=== PATIENT | female | born 1950 | race Hispanic/Latino ===

== ENCOUNTER 2019-04-10 13:58 | Emergency (ER) | payer MEDICARE ==
[2019-04-10 14:26] LABS: BASOPHILS % (AUTO) 0.3 % (0.0-5.0); EOSINOPHILS % (AUTO) 0.8 % (0.0-8.0); HEMATOCRIT 43.1 % (36-48); MEAN CORPUSCULAR HEMOGLOBIN 32.6 pg (27.0-33.0); MEAN CORPUSCULAR HGB CONC 35.1 g/dL (32.0-36.0); MEAN CORPUSCULAR VOLUME 92.7 fL (79-99); MONOCYTES % (AUTO) 4.5 % (3.0-13.0); NEUTROPHILS % (AUTO) 69.4 % (40.0-77.0); PLATELET COUNT (AUTO) 215 K/uL (130-400); RED BLOOD CELL COUNT(AUTO) 4.65 MIL/uL (4.00-5.50); RED CELL DISTRIBUTION WIDTH 12.8 % (11.0-15.5); WHITE BLOOD COUNT (AUTO) 10.3 K/uL (4.8-10.8)
[2019-04-10 14:36] LABS: APPEARANCE,URINE Clear (CLEAR); BILIRUBIN,URINE Negative (NEGATIVE); COLOR,URINE Yellow (YELLOW); CREATININE 0.9 mg/dL (0.5-1.5); GLUCOSE, URINE (UA) Negative (NEGATIVE); KETONES,URINE Negative (NEGATIVE); LEUKOCYTE ESTERASE ,URINE Trace (NEGATIVE); NITRATE,URINE Negative (NEGATIVE); OCCULT BLOOD,URINE Negative (NEGATIVE); POTASSIUM 3.8 mmol/L (3.5-5.1); PROTEIN,URINE Negative (NEGATIVE)
[2019-04-10 14:40] LABS: BILIRUBIN,TOTAL 0.7 mg/dL (0.2-1.0); TOTAL PROTEIN, SERUM 8.2 g/dL (6.0-8.3)
[2019-04-10] MEDS ORDERED: ONDANSETRON HCL 4 MG/2 ML VIAL ONE (14:54)
[2019-04-10] MEDS ORDERED: MAG HYDROX/AL HYDROX/SIMETH ES 30 ML SUSP UDCUP ONE (14:54)
[2019-04-10] MEDS ORDERED: LIDOCAINE HCL 2% VISCOUS 15 ML UDCUP ONE (14:54)
[2019-04-10] MEDS ORDERED: FAMOTIDINE/PF 20 MG/2 ML VIAL IV ONE (14:54)
[2019-04-10] MEDS ORDERED: SODIUM CHLORIDE 0.9% 1000ML 1,000 ML IV ONE (14:55)
[2019-04-10 15:18] LABS: BACTERIA,URINE Rare /HPF (None Seen); RBC,URINE 0-1 /HPF (0-1); SQUAMOUS EPITHELIAL CELL,UR Rare /HPF (0-2); WBC,URINE 0-1 /HPF (0-1)
== END 2019-04-10 15:53 | disposition home or self-care (01) ==
LOC: EDH 13:58
DX: K21.9 Gastro-esophageal reflux disease without esophagitis (principal); K29.70 Gastritis, unspecified, without bleeding; I10 Essential (primary) hypertension; Z98.890 Other specified postprocedural states
CPT/HCPCS: 36415; 80053; 81001; 83690; 84484; 85025; 93005; 96361; 96374; 96375; 99285; J2405; J3490; J7030

== ENCOUNTER 2019-11-26 18:01 | Emergency (ER) | payer MEDICARE ==
[2019-11-26] MEDS ORDERED: ACETAMINOPHEN 325 MG TAB ONE (18:55)
[2019-11-26 19:56] LABS: BASOPHILS % (AUTO) 0.2 % (0.0-5.0); EOSINOPHILS % (AUTO) 0.3 % (0.0-8.0); HEMATOCRIT 37.5 % (36-48); LYMPHOCYTES % (AUTO) 15.4 % (21.0-51.0); MEAN CORPUSCULAR HEMOGLOBIN 29.9 pg (27.0-33.0); MEAN CORPUSCULAR HGB CONC 33.6 g/dL (32.0-36.0); MEAN CORPUSCULAR VOLUME 88.9 fL (79-99); MONOCYTES % (AUTO) 5.7 % (3.0-13.0); PLATELET COUNT (AUTO) 235 K/uL (130-400); RED BLOOD CELL COUNT(AUTO) 4.22 MIL/uL (4.00-5.50); WHITE BLOOD COUNT (AUTO) 11.1 K/uL (4.8-10.8)
[2019-11-26 19:57] LABS: APPEARANCE,URINE Clear (CLEAR); BILIRUBIN,URINE Negative (NEGATIVE); COLOR,URINE Yellow (YELLOW); GLUCOSE, URINE (UA) Negative (NEGATIVE); KETONES,URINE Negative (NEGATIVE); LEUKOCYTE ESTERASE ,URINE Trace (NEGATIVE); NITRATE,URINE Negative (NEGATIVE); OCCULT BLOOD,URINE Negative (NEGATIVE); PROTEIN,URINE Negative (NEGATIVE); UROBILINOGEN,URINE 0.2 mg/dL (0.2-1.0)
[2019-11-26 20:03] LABS: CREATININE 0.9 mg/dL (0.5-1.5); POTASSIUM 4.4 mmol/L (3.5-5.1)
[2019-11-26 20:09] LABS: ALBUMIN 3.8 g/dL (3.5-5.0); BACTERIA,URINE Rare /HPF (None Seen); BILIRUBIN,TOTAL 0.5 mg/dL (0.2-1.0); RBC,URINE None Seen /HPF (0-1); SQUAMOUS EPITHELIAL CELL,UR 0-2 /HPF (0-2); TOTAL PROTEIN, SERUM 8.2 g/dL (6.0-8.3); WBC,URINE 0-1 /HPF (0-1)
[2019-11-26 20:32] LABS: INR 1.01 (0.85-1.15); PARTIAL THROMBOPLASTIN TIME 26.6 SEC (26.3-35.5); PROTHROMBIN TIME 10.6 SEC (9.6-11.6)
== END 2019-11-26 22:41 | disposition home or self-care (01) ==
LOC: EDH 18:01
DX: S05.12XA Contusion of eyeball and orbital tissues, left eye, initial encounter (principal); S13.4XXA Sprain of ligaments of cervical spine, initial encounter; I10 Essential (primary) hypertension; V49.88XA Car occupant (driver) (passenger) injured in other specified transport accidents, initial encounter; Y93.89 Activity, other specified; Y92.488 Other paved roadways as the place of occurrence of the external cause; Y99.8 Other external cause status
CPT/HCPCS: 36415; 70450; 71045; 72125; 80053; 81001; 85025; 85610; 85730; 93005

== ENCOUNTER → 2019-11-26 | Outpatient (CLI) | payer MEDICARE | END | disposition home or self-care (01) | LOC: RAH 15:17 | PROVIDERS: ATTEND Family Medicine | DX: Z12.31 Encounter for screening mammogram for malignant neoplasm of breast (principal); R92.1 Mammographic calcification found on diagnostic imaging of breast | CPT/HCPCS: 77067 ==

== ENCOUNTER → 2020-04-04 | Outpatient (CLI) | payer MEDICARE ==
[~2020-04-04] MED LIST: IOHEXOL-350 50ML VIAL IV ONE
== END | disposition home or self-care (01) ==
LOC: RAH 14:16
PROVIDERS: ATTEND Family Medicine
DX: R51 Headache (principal); H93.19 Tinnitus, unspecified ear; H93.292 Other abnormal auditory perceptions, left ear
CPT/HCPCS: 70470; Q9967

== ENCOUNTER → 2021-03-05 | Outpatient (CLI) | payer MEDICARE | END | disposition home or self-care (01) | LOC: RAH 15:01 | PROVIDERS: ATTEND Family Medicine | DX: Z12.31 Encounter for screening mammogram for malignant neoplasm of breast (principal) | CPT/HCPCS: 77067 ==

== ENCOUNTER 2021-04-10 19:54 | Emergency (ER) | payer MEDICARE ==
[~2021-04-10] VITALS: Ht 154.9 cm; Wt 50.8 kg
[2021-04-10 20:05] VITALS: BP 161/70
[2021-04-10] MEDS ORDERED: FAMOTIDINE/PF 20 MG/2 ML VIAL IV ONE ×2 (21:00→22:04)
[2021-04-10] MEDS ORDERED: SODIUM CHLORIDE 0.9% 1000ML 1,000 ML IV ONE (21:00)
[2021-04-10] MEDS ORDERED: PROCHLORPERAZINE EDISYLATE 10 MG/2 ML VIAL IVP ONE (21:00)
[2021-04-10] MEDS ORDERED: PANTOPRAZOLE 40 MG/VIAL IVP ONE (21:00)
[2021-04-10 21:53] LABS: BASOPHILS % (AUTO) 0.2 % (0.0-5.0); LYMPHOCYTES % (AUTO) 19.8 % (21.0-51.0); MEAN CORPUSCULAR HEMOGLOBIN 31.3 pg (27.0-33.0); MEAN CORPUSCULAR HGB CONC 33.9 g/dL (32.0-36.0); MEAN CORPUSCULAR VOLUME 92.2 fL (79-99); MONOCYTES % (AUTO) 5.7 % (3.0-13.0); PLATELET COUNT (AUTO) 249 K/uL (130-400); RED BLOOD CELL COUNT(AUTO) 4.12 MIL/uL (4.00-5.50); RED CELL DISTRIBUTION WIDTH 12.3 % (11.0-15.5); WHITE BLOOD COUNT (AUTO) 10.1 K/uL (4.8-10.8)
[2021-04-10] MEDS ORDERED: ONDANSETRON HCL 4 MG/2 ML VIAL ONE (22:03)
[2021-04-10] MEDS ORDERED: PROCHLORPERAZINE EDISYLATE 10 MG/2 ML VIAL ONE (22:04)
[2021-04-10] MEDS ORDERED: PANTOPRAZOLE 40 MG/VIAL ONE (22:04)
[2021-04-10 22:06] LABS: CREATININE 0.9 mg/dL (0.5-1.5); POTASSIUM 4.6 mmol/L (3.5-5.1)
[2021-04-10 22:14] LABS: ALBUMIN 4.1 g/dL (3.5-5.0); BILIRUBIN,TOTAL 0.6 mg/dL (0.2-1.0); TOTAL PROTEIN, SERUM 7.9 g/dL (6.0-8.3)
[2021-04-10] MEDS: ONDANSETRON HCL 4 MG/2 ML VIAL IVP ONE ×2 (22:22→22:27)
[2021-04-10] MEDS ORDERED: PANT40TA PO (23:24)
[2021-04-10] MEDS ORDERED: METO5 PO (23:24)
[2021-04-10] MEDS ORDERED: ONDA4TAB10 PO (23:24)
[2021-04-10] MEDS ORDERED: DICY20TA2 PO (23:24)
[2021-04-10] MEDS ORDERED: MAG HYDROX/AL HYDROX/SIMETH ES 30 ML SUSP UDCUP PO ONE (23:30)
[2021-04-10] MEDS ORDERED: LIDOCAINE HCL 2% VISCOUS 15 ML UDCUP PO ONE (23:30)
[2021-04-10] MEDS ORDERED: DiphenhydrAMINE HCL 50 MG/ML VIAL IV ONE (23:30)
[2021-04-11] VITALS: BP 142/82
== END 2021-04-11 00:15 | disposition home or self-care (01) ==
LOC: EDH 19:54
DX: K29.70 Gastritis, unspecified, without bleeding (principal); E86.0 Dehydration; I10 Essential (primary) hypertension; Z79.899 Other long term (current) drug therapy
CPT/HCPCS: 36415; 80053; 83690; 84484; 85025; 96374; 96375 ×2; 99284; C9113; J0780; J1200; J2405; J3490; 93005

== ENCOUNTER 2021-04-12 19:53 | Inpatient (IN) | payer MEDICARE ==
[~2021-04-12] VITALS: Ht 154.9 cm; Wt 51.1 kg
[~2021-04-12 19:53] MED LIST changes: +DICY20TA2 PO; -IOHEXOL-350 50ML VIAL IV ONE; +METO5 PO; +ONDA4TAB10 PO; +PANT40TA PO
[2021-04-12] MEDS ORDERED: PANTOPRAZOLE 40 MG/VIAL IVP SCH (20:30)
[2021-04-12] MEDS ORDERED: METOCLOPRAMIDE 10 MG/2 ML VIAL IVP ONE (20:30)
[2021-04-12] MEDS ORDERED: SODIUM CHLORIDE 0.9% 1000ML 1,000 ML IV ONE (20:30)
[2021-04-12] MEDS ORDERED: FAMOTIDINE/PF 20 MG/2 ML VIAL IV ONE (20:30)
[2021-04-12] MEDS ORDERED: ONDANSETRON HCL 4 MG/2 ML VIAL IVP ONE (20:30)
[2021-04-12 20:55] VITALS: BP 127/63
[2021-04-12 21:01] LABS: BASOPHILS % (AUTO) 0.1 % (0.0-5.0); EOSINOPHILS % (AUTO) 1.6 % (0.0-8.0); HEMATOCRIT 42.9 % (36-48); LYMPHOCYTES % (AUTO) 6.7 % (21.0-51.0); MEAN CORPUSCULAR HEMOGLOBIN 30.2 pg (27.0-33.0); MEAN CORPUSCULAR HGB CONC 34.3 g/dL (32.0-36.0); MEAN CORPUSCULAR VOLUME 88.1 fL (79-99); MONOCYTES % (AUTO) 3.9 % (3.0-13.0); NEUTROPHILS % (AUTO) 87.4 % (40.0-77.0); PLATELET COUNT (AUTO) 299 K/uL (130-400); RED BLOOD CELL COUNT(AUTO) 4.87 MIL/uL (4.00-5.50); RED CELL DISTRIBUTION WIDTH 12.1 % (11.0-15.5); WHITE BLOOD COUNT (AUTO) 14.9 K/uL (4.8-10.8)
[2021-04-12] MEDS ORDERED: IOHEXOL-350 75 ML VIAL IV ONE (21:11)
[2021-04-12 21:12] LABS: CARBON DIOXIDE 27 mmol/L (21-32); CHLORIDE 91 mmol/L (101-111); CREATININE 1.1 mg/dL (0.5-1.5); GLOMERULAR FILTR. RATE CALC 52 mL/min (>60); GLUCOSE,RANDOM 109 mg/dL (70-105); POTASSIUM 4.1 mmol/L (3.5-5.1); SODIUM SERUM 128 mmol/L (136-145); UREA NITROGEN, BLOOD 26 mg/dL (7-18)
[2021-04-12 21:18] LABS: ALANINE AMINOTRANSFERASE 19 U/L (12-78); ASPARTATE AMINOTRANSFERASE 18 U/L (10-37); BILIRUBIN,TOTAL 1.2 mg/dL (0.2-1.0); TOTAL PROTEIN, SERUM 8.2 g/dL (6.0-8.3)
[2021-04-12 21:20] LABS: LIPASE < 50 U/L (114-286)
[2021-04-12 22:38] VITALS: BP 133/85
[2021-04-12 22:39] LABS: APPEARANCE,URINE Clear (CLEAR); BILIRUBIN,URINE Negative (NEGATIVE); COLOR,URINE Yellow (YELLOW); GLUCOSE, URINE (UA) Negative (NEGATIVE); KETONES,URINE Negative (NEGATIVE); LEUKOCYTE ESTERASE ,URINE Negative (NEGATIVE); NITRATE,URINE Negative (NEGATIVE); OCCULT BLOOD,URINE Negative (NEGATIVE); PH,URINE 6.5 (5.0-8.0); PROTEIN,URINE Negative (NEGATIVE); UROBILINOGEN,URINE 0.2 mg/dL (0.2-1.0)
[2021-04-13] VITALS (8 sets, daily range): BP systolic 134–146; BP diastolic 51–80
[2021-04-13] MEDS: LIDOCAINE HCL 2% JELLY 5 ML TP SCH ×2 (00:34→22:16)
[2021-04-13] MEDS ORDERED: DICY20TA11 PO (02:37)
[2021-04-13] MEDS ORDERED: OMEP20CA12 PO (02:37)
[2021-04-13] MEDS ORDERED: AMLO-257 PO (02:37)
[2021-04-13] MEDS ORDERED: LOSA100T58 PO (02:37)
[2021-04-13] MEDS ORDERED: LINA290C PO (02:37)
[2021-04-13] MEDS ORDERED: LEVO5TAB13 PO (02:37)
[2021-04-13] MEDS ORDERED: FLUT16H EN (02:37)
[2021-04-13] MEDS ORDERED: MONT10TA32 PO (02:37)
[2021-04-13] MEDS ORDERED: LEVO50TA11 PO (02:37)
[2021-04-13] MEDS ORDERED: AZEL137S11 NS (02:37)
[2021-04-13] MEDS ORDERED: METO5TAB2 PO (02:37)
[2021-04-13] MEDS ORDERED: HYDR12.54 PO (02:37)
[2021-04-13] MEDS ORDERED: FLUT (02:37)
[2021-04-13] MEDS ORDERED: ONDA4TAB10 PO (02:37)
[2021-04-13] MEDS ORDERED: PANT40TA54 PO (02:37)
[2021-04-13] MEDS ORDERED: ONDANSETRON HCL 4 MG/2 ML VIAL IVP PRN (04:30)
[2021-04-13] MEDS ORDERED: HYDRALAZINE HCL 20 MG/ML VIAL IV PRN (04:30)
[2021-04-13] MEDS: ZOSYN 3.375GM +NS 50ML IV SCH ×3 (04:30→21:17)
[2021-04-13] MEDS ORDERED: ACETAMINOPHEN 650 MG SUPPOSITORY RC PRN (04:30)
[2021-04-13] MEDS ORDERED: ZOSYN 3.375GM+NS 50ML 50 ML IV ONE (05:54)
[2021-04-13 06:47] LABS: BASOPHILS % (AUTO) 0.2 % (0.0-5.0); EOSINOPHILS % (AUTO) 0.3 % (0.0-8.0); HEMATOCRIT 35.3 % (36-48); LYMPHOCYTES % (AUTO) 15.9 % (21.0-51.0); MEAN CORPUSCULAR HEMOGLOBIN 30.9 pg (27.0-33.0); MEAN CORPUSCULAR HGB CONC 34.3 g/dL (32.0-36.0); MEAN CORPUSCULAR VOLUME 90.1 fL (79-99); MONOCYTES % (AUTO) 7.4 % (3.0-13.0); NEUTROPHILS % (AUTO) 75.8 % (40.0-77.0); PLATELET COUNT (AUTO) 232 K/uL (130-400); RED BLOOD CELL COUNT(AUTO) 3.92 MIL/uL (4.00-5.50); RED CELL DISTRIBUTION WIDTH 12.3 % (11.0-15.5); WHITE BLOOD COUNT (AUTO) 11.2 K/uL (4.8-10.8)
[2021-04-13 07:10] LABS: CREATININE 0.8 mg/dL (0.5-1.5); PHOSPHORUS 2.6 mg/dL (2.5-4.9); POTASSIUM 3.8 mmol/L (3.5-5.1); THYROID STIMULATING HORMONE 2.81 uIU/mL (0.36-3.74)
[2021-04-13] MEDS: FAMOTIDINE/PF 20 MG/2 ML VIAL IV SCH ×3 (08:57→21:18)
[2021-04-13] MEDS: ENOXAPARIN SODIUM 40 MG/0.4 ML SYRINGE SQ SCH (09:03)
[2021-04-13] MEDS: DEXTROSE 5%-LACTATED RINGERS 1,000 ML IV SCH ×2 (10:30→19:26)
[2021-04-13] MEDS: BISACODYL 10 MG SUPP.RECT RC SCH (11:30)
[2021-04-13] MEDS ORDERED: POTASSIUM CHLORIDE 20MEQ/100ML 100 ML IV PRN ×2 (11:30)
[2021-04-13] MEDS ORDERED: LIDOCAINE HCL-MPF 1% 2ML VIAL IV PRN ×2 (11:30)
[2021-04-13] MEDS ORDERED: POTASSIUM CHLORIDE 10% ELIXIR 20 MEQ/15 ML UDCUP PO PRN (11:30)
[2021-04-13] MEDS ORDERED: MAGNESIUM 2GM PREMIX 50ML 50 ML IV PRN (11:30)
[2021-04-13] MEDS: METOCLOPRAMIDE 10 MG/2 ML VIAL IVP SCH ×2 (11:46→17:26)
[2021-04-13] MEDS ORDERED: SODIUM CHLORIDE 0.9% 100 ML ONE ×2 (13:27→21:16)
[2021-04-13] MEDS ORDERED: SODIUM CHLORIDE 0.9% 50 ML IV ONE (17:34)
[2021-04-13] MEDS: LACTULOSE 20 GM/30 ML UDCUP PO SCH (21:17)
[2021-04-14] VITALS (7 sets, daily range): BP systolic 132–158; BP diastolic 54–75
[2021-04-14] MEDS: ZOSYN 3.375GM +NS 50ML IV SCH ×3 (04:42→20:15)
[2021-04-14] MEDS: DEXTROSE 5%-LACTATED RINGERS 1,000 ML IV SCH (04:42)
[2021-04-14 05:04] LABS: HEMATOCRIT 34.7 % (36-48); MEAN CORPUSCULAR HEMOGLOBIN 30.5 pg (27.0-33.0); MEAN CORPUSCULAR HGB CONC 34.3 g/dL (32.0-36.0); RED BLOOD CELL COUNT(AUTO) 3.9 MIL/uL (4.00-5.50); RED CELL DISTRIBUTION WIDTH 12.3 % (11.0-15.5); WHITE BLOOD COUNT (AUTO) 8.7 K/uL (4.8-10.8)
[2021-04-14] MEDS ORDERED: CABE0.5T2 PO (05:04)
[2021-04-14] MEDS ORDERED: BISA5TAB12 PO (05:04)
[2021-04-14] MEDS ORDERED: PSYL3.4P5 PO (05:04)
[2021-04-14 05:17] LABS: CREATININE 0.8 mg/dL (0.5-1.5); MAGNESIUM 1.9 mg/dL (1.80-2.40); PHOSPHORUS 2.4 mg/dL (2.5-4.9); POTASSIUM 3.3 mmol/L (3.5-5.1)
[2021-04-14] MEDS: METOCLOPRAMIDE 10 MG/2 ML VIAL IVP SCH ×3 (07:30→16:48)
[2021-04-14] MEDS ORDERED: POTASSIUM PHOS 15 mMOL+NS250ML 250 ML IV ONE (07:30)
[2021-04-14] MEDS: BISACODYL 10 MG SUPP.RECT RC SCH ×2 (08:24→09:36)
[2021-04-14] MEDS: ENOXAPARIN SODIUM 40 MG/0.4 ML SYRINGE SQ SCH (09:36)
[2021-04-14] MEDS: LACTULOSE 20 GM/30 ML UDCUP PO SCH ×2 (09:36→20:15)
[2021-04-14] MEDS: FAMOTIDINE/PF 20 MG/2 ML VIAL IV SCH (20:15)
[2021-04-14] MEDS: MORPHINE 2 MG SYG (2MG/1ML) IVP PRN (20:16)
[2021-04-15 04:00] VITALS: BP 153/67
[2021-04-15] MEDS: ZOSYN 3.375GM +NS 50ML IV SCH ×3 (04:48→21:29)
[2021-04-15] MEDS: DEXTROSE 5%-LACTATED RINGERS 1,000 ML IV SCH ×2 (04:49→17:21)
[2021-04-15 05:57] LABS: HEMATOCRIT 34.7 % (36-48); MEAN CORPUSCULAR VOLUME 91.1 fL (79-99); RED BLOOD CELL COUNT(AUTO) 3.81 MIL/uL (4.00-5.50); RED CELL DISTRIBUTION WIDTH 12.3 % (11.0-15.5); WHITE BLOOD COUNT (AUTO) 7.8 K/uL (4.8-10.8)
[2021-04-15 06:01] LABS: CREATININE 0.8 mg/dL (0.5-1.5); POTASSIUM 3.2 mmol/L (3.5-5.1)
[2021-04-15] MEDS: KCL 20 MEQ ERTAB PO PRN ×3 (06:45→17:21)
[2021-04-15] MEDS: METOCLOPRAMIDE 10 MG/2 ML VIAL IVP SCH ×3 (06:45→16:19)
[2021-04-15] MEDS: BISACODYL 10 MG SUPP.RECT RC SCH ×2 (07:50)
[2021-04-15 08:00] VITALS: BP 165/69
[2021-04-15] MEDS ORDERED: LACT10SO9 PO (08:30)
[2021-04-15] MEDS: FAMOTIDINE/PF 20 MG/2 ML VIAL IV SCH ×2 (08:58→21:29)
[2021-04-15] MEDS: ENOXAPARIN SODIUM 40 MG/0.4 ML SYRINGE SQ SCH (08:58)
[2021-04-15] MEDS: LACTULOSE 20 GM/30 ML UDCUP PO SCH ×2 (08:58→21:29)
[2021-04-15 12:00] VITALS: BP 158/62
[2021-04-15 16:00] VITALS: BP 166/70
[2021-04-15 19:41] VITALS: BP 157/76
[2021-04-16] VITALS: BP 160/75
[2021-04-16] MEDS: MORPHINE 2 MG SYG (2MG/1ML) IVP PRN (02:45)
[2021-04-16 04:00] VITALS: BP 162/77
[2021-04-16] MEDS: DEXTROSE 5%-LACTATED RINGERS 1,000 ML IV SCH (05:52)
[2021-04-16] MEDS: ZOSYN 3.375GM +NS 50ML IV SCH (05:52)
[2021-04-16] MEDS: METOCLOPRAMIDE 10 MG/2 ML VIAL IVP SCH (05:52)
[2021-04-16 07:00] VITALS: BP 146/67
[2021-04-16 08:30] LABS: CREATININE 0.9 mg/dL (0.5-1.5); POTASSIUM 3.7 mmol/L (3.5-5.1)
[2021-04-16] MEDS ORDERED: HYDROCHLOROTHIAZIDE 25 MG TABLET PO SCH (09:00)
[2021-04-16] MEDS ORDERED: LOSARTAN 100 MG TABLET PO SCH (09:00)
[2021-04-16] MEDS ORDERED: AMLODIPINE BESYLATE 5 MG TAB PO SCH (09:00)
[2021-04-16] MEDS: FAMOTIDINE/PF 20 MG/2 ML VIAL IV SCH (09:47)
[2021-04-16] MEDS: LACTULOSE 20 GM/30 ML UDCUP PO SCH (09:48)
[2021-04-16] MEDS: ENOXAPARIN SODIUM 40 MG/0.4 ML SYRINGE SQ SCH (09:48)
[2021-04-16 11:00] VITALS: BP 179/74
[2021-04-16] MEDS ORDERED: SUCR1TAB28 PO (12:46)
== END 2021-04-16 14:45 | disposition home or self-care (01) | DRG 389 ==
LOC: EDH 19:53 → EDHIP 04-13 02:23 → OBSVTOIN 04-13 02:23 → 3DH 04-14 03:10
PROVIDERS: ADMIT Internal Medicine Critical Care Medicine; ATTEND Internal Medicine Critical Care Medicine
PROC: 0D9670Z Drainage of Stomach with Drainage Device, Via Natural or Artificial Opening (ICD-10-PCS; principal; 2021-04-13)
DX: K56.51 Intestinal adhesions [bands], with partial obstruction (principal); E87.1 Hypo-osmolality and hyponatremia; E03.9 Hypothyroidism, unspecified; E86.0 Dehydration; I10 Essential (primary) hypertension; K21.9 Gastro-esophageal reflux disease without esophagitis; Z85.038 Personal history of other malignant neoplasm of large intestine; Z90.49 Acquired absence of other specified parts of digestive tract; Z79.899 Other long term (current) drug therapy
CPT/HCPCS: 36415; 71045; 74018; 74177; 80048; 80053; 81003; 83690; 83735; 84100; 84443; 84484; 85025; 85027; 93005; 96374; 96375; C9113; G0378; J0780; J1200; J1650; J2405; J2543; J2765; J3490; J7030; Q9967

== ENCOUNTER → 2021-06-05 | Outpatient (CLI) | payer MEDICARE ==
[~2021-06-05] MED LIST changes: +AMLO-257 PO; +AZEL137S11 NS; +CABE0.5T2 PO; -DICY20TA2 PO; +FLUT16H EN; +HYDR12.54 PO; +LACT10SO9 PO; +LEVO50TA11 PO; +LEVO5TAB13 PO; +LINA290C PO; +LOSA100T58 PO; +MONT10TA32 PO; +OMEP20CA12 PO; -PANT40TA PO; +PSYL3.4P5 PO; +SUCR1TAB28 PO
== END | disposition home or self-care (01) ==
LOC: OIH 15:43
PROVIDERS: ATTEND Family Medicine
DX: M25.711 Osteophyte, right shoulder (principal)
CPT/HCPCS: 73030

== ENCOUNTER → 2021-06-18 | Outpatient (CLI) | payer MEDICARE | END | disposition home or self-care (01) | LOC: RAH 10:58 | PROVIDERS: ATTEND Internal Medicine Gastroenterology | DX: R10.13 Epigastric pain (principal) | CPT/HCPCS: 78264; A9541 ==

== ENCOUNTER 2022-02-12 20:55 | Inpatient (IN) | payer MEDICARE ==
[~2022-02-12] VITALS: Ht 154.9 cm; Wt 48.6 kg
[~2022-02-12 20:55] MED LIST changes: +MONT-39 PO; -MONT10TA32 PO
[2022-02-12] MEDS ORDERED: ONDANSETRON 4MG INJ IVP ONE (21:30)
[2022-02-12] MEDS ORDERED: DICYCLOMINE HCL 10 MG/5 ML ML PO ONE (21:30)
[2022-02-12] MEDS ORDERED: FAMOTIDINE 20MG TAB PO ONE (21:30)
[2022-02-12] MEDS ORDERED: LIDOCAINE HCL 2% VISCOUS 15 ML UDCUP PO ONE (21:30)
[2022-02-12] MEDS ORDERED: ACETAMINOPHEN 500 MG TABLET PO ONE (21:30)
[2022-02-12] MEDS ORDERED: MAG/ALUM/SIMETH 30 ML UDCUP PO ONE (21:30)
[2022-02-12 21:32] LABS: BASOPHILS % (AUTO) 0.3 % (0.0-5.0); EOSINOPHILS % (AUTO) 0.4 % (0.0-8.0); HEMATOCRIT 34.2 % (36-48); LYMPHOCYTES % (AUTO) 11.3 % (21.0-51.0); MEAN CORPUSCULAR HEMOGLOBIN 31.3 pg (27.0-33.0); NEUTROPHILS % (AUTO) 81.7 % (40.0-77.0); PLATELET COUNT (AUTO) 239 K/uL (130-400); RED BLOOD CELL COUNT(AUTO) 3.93 MIL/uL (4.00-5.50)
[2022-02-12 21:40] LABS: CARBON DIOXIDE 23 mmol/L (21-32); CHLORIDE 94 mmol/L (101-111); GLOMERULAR FILTR. RATE CALC 58 mL/min (>60); GLUCOSE,RANDOM 128 mg/dL (70-105); POTASSIUM 3.4 mmol/L (3.5-5.1); SODIUM SERUM 128 mmol/L (136-145); UREA NITROGEN, BLOOD 15 mg/dL (7-18)
[2022-02-12 21:44] LABS: ALANINE AMINOTRANSFERASE 24 U/L (12-78); ASPARTATE AMINOTRANSFERASE 17 U/L (10-37); BILIRUBIN,TOTAL 1.1 mg/dL (0.2-1.0); TOTAL PROTEIN, SERUM 7.6 g/dL (6.0-8.3)
[2022-02-12 21:47] LABS: LIPASE < 50 U/L (114-286)
[2022-02-12] MEDS ORDERED: 0.9%NACL 1000ML 1,000 ML IV ONE ×2 (22:21→22:30)
[2022-02-12] MEDS ORDERED: LACTULOSE 20 GM/30 ML UDCUP PO PRN (23:00)
[2022-02-12] MEDS ORDERED: HYDRALAZINE 20MG/ML VIAL IV PRN (23:00)
[2022-02-12] MEDS ORDERED: ACETAMINOPHEN 650 MG SUPPOSITORY RC PRN (23:00)
[2022-02-12] MEDS ORDERED: DOCUSATE SODIUM 100 MG CAP PO PRN (23:00)
[2022-02-12] MEDS ORDERED: ALBUTEROL 0.083% 2.5 MG/3 ML INH IH PRN (23:00)
[2022-02-12] MEDS ORDERED: ACETAMINOPHEN 325 MG TAB PO PRN (23:00)
[2022-02-12] MEDS: 0.9%NACL 1000ML 1,000 ML IV SCH (23:30)
[2022-02-12] MEDS: MORPHINE 2 MG SYG IVP PRN (23:54)
[2022-02-12] MEDS: ONDANSETRON 4MG INJ IVP PRN (23:54)
[2022-02-13 01:44] LABS: APPEARANCE,URINE Clear (CLEAR); BILIRUBIN,URINE Negative (NEGATIVE); COLOR,URINE Yellow (YELLOW); GLUCOSE, URINE (UA) Negative (NEGATIVE); KETONES,URINE 15 mg/dL (NEGATIVE); LEUKOCYTE ESTERASE ,URINE Trace (NEGATIVE); NITRATE,URINE Negative (NEGATIVE); OCCULT BLOOD,URINE Negative (NEGATIVE); PH,URINE 6.5 (5.0-8.0); PROTEIN,URINE Negative (NEGATIVE)
[2022-02-13 01:58] LABS: BACTERIA,URINE None Seen /HPF (None Seen); RBC,URINE None Seen /HPF (0-1); SQUAMOUS EPITHELIAL CELL,UR Rare /HPF (0-2); WBC,URINE 0-1 /HPF (0-1)
[2022-02-13 05:21] VITALS: BP 152/65
[2022-02-13 06:32] LABS: AMYLASE 36 U/L (25-115); CARBON DIOXIDE 22 mmol/L (21-32); CHLORIDE 97 mmol/L (101-111); CREATININE 0.7 mg/dL (0.5-1.5); GLOMERULAR FILTR. RATE CALC 88 mL/min (>60); GLUCOSE,RANDOM 93 mg/dL (70-105); PHOSPHORUS 2.8 mg/dL (2.5-4.9); POTASSIUM 3.5 mmol/L (3.5-5.1); SODIUM SERUM 127 mmol/L (136-145); UREA NITROGEN, BLOOD 12 mg/dL (7-18)
[2022-02-13 06:33] LABS: LIPASE < 50 U/L (114-286)
[2022-02-13 06:34] LABS: HEMATOCRIT 30.7 % (36-48); MEAN CORPUSCULAR HEMOGLOBIN 30.7 pg (27.0-33.0); MEAN CORPUSCULAR HGB CONC 34.9 g/dL (32.0-36.0); RED BLOOD CELL COUNT(AUTO) 3.49 MIL/uL (4.00-5.50)
[2022-02-13] MEDS: ONDANSETRON 4MG INJ IVP PRN (08:46)
[2022-02-13] MEDS: MORPHINE 2 MG SYG IVP PRN (08:47)
[2022-02-13] MEDS: POLYETHYLENE GLYCOL 3350 17 GM POWD.PACK PO SCH (08:49)
[2022-02-13] MEDS: ENOXAPARIN SODIUM 30 MG/0.3 ML SQ SCH (08:49)
[2022-02-13] MEDS: 0.9%NACL 1000ML 1,000 ML IV SCH (09:00)
[2022-02-13] MEDS ORDERED: LABETALOL 20MG SYG IV PRN (09:00)
[2022-02-13] MEDS ORDERED: MAGNESIUM 2GM PREMIX 50ML 50 ML IV PRN (09:00)
[2022-02-13 09:09] VITALS: BP 144/61
[2022-02-13] MEDS: PANTOPRAZOLE 40 MG/VIAL IVP SCH (11:13)
[2022-02-13] MEDS: CEFTRIAXONE 1G VIAL IVP SCH (11:13)
[2022-02-13] MEDS: INSULIN HUMULIN R 100 UNIT/ML 3ML SQ SCH ×3 (11:30→21:00)
[2022-02-13] MEDS: METOCLOPRAMIDE 10 MG/2 ML VIAL IVP SCH ×3 (11:30→18:01)
[2022-02-13 12:00] VITALS: BP 147/60
[2022-02-13 16:00] VITALS: BP 139/61
[2022-02-13] MEDS: DEXTROSE 5 %-0.45 % NACL 1,000 ML IV SCH (21:29)
[2022-02-13 21:42] VITALS: BP 148/67
[2022-02-14] MEDS: ONDANSETRON 4MG INJ IVP PRN ×2 (00:01→10:06)
[2022-02-14] MEDS: MORPHINE 2 MG SYG IVP PRN ×2 (00:08→10:06)
[2022-02-14 00:35] VITALS: BP 146/59
[2022-02-14 05:20] LABS: BASOPHILS % (AUTO) 0.2 % (0.0-5.0); EOSINOPHILS % (AUTO) 0.9 % (0.0-8.0); HEMATOCRIT 29.1 % (36-48); LYMPHOCYTES % (AUTO) 14.3 % (21.0-51.0); MEAN CORPUSCULAR HEMOGLOBIN 31.9 pg (27.0-33.0); MEAN CORPUSCULAR HGB CONC 36.8 g/dL (32.0-36.0); MEAN CORPUSCULAR VOLUME 86.9 fL (79-99); MONOCYTES % (AUTO) 10.1 % (3.0-13.0); NEUTROPHILS % (AUTO) 74.3 % (40.0-77.0); PLATELET COUNT (AUTO) 209 K/uL (130-400); RED BLOOD CELL COUNT(AUTO) 3.35 MIL/uL (4.00-5.50); RED CELL DISTRIBUTION WIDTH 13.2 % (11.0-15.5); WHITE BLOOD COUNT (AUTO) 4.5 K/uL (4.8-10.8)
[2022-02-14 05:24] VITALS: BP 143/63
[2022-02-14 05:47] LABS: ALBUMIN 2.9 g/dL (3.5-5.0); CREATININE 0.7 mg/dL (0.5-1.5); POTASSIUM 3.1 mmol/L (3.5-5.1); THYROID STIMULATING HORMONE 3.19 uIU/mL (0.36-3.74); TOTAL PROTEIN, SERUM 6.1 g/dL (6.0-8.3)
[2022-02-14] MEDS: INSULIN HUMULIN R 100 UNIT/ML 3ML SQ SCH ×4 (06:15→20:57)
[2022-02-14] MEDS: METOCLOPRAMIDE 10 MG/2 ML VIAL IVP SCH ×3 (06:36→17:00)
[2022-02-14 08:00] VITALS: BP 143/62
[2022-02-14] MEDS: POLYETHYLENE GLYCOL 3350 17 GM POWD.PACK PO SCH (09:00)
[2022-02-14] MEDS: CEFTRIAXONE 1G VIAL IVP SCH (10:06)
[2022-02-14] MEDS: PANTOPRAZOLE 40 MG/VIAL IVP SCH (10:06)
[2022-02-14] MEDS: ENOXAPARIN SODIUM 30 MG/0.3 ML SQ SCH (10:07)
[2022-02-14 12:00] VITALS: BP 130/57
[2022-02-14 16:00] VITALS: BP 144/66
[2022-02-14] MEDS: LIDOCAINE HCL-MPF 1% 2ML VIAL IV PRN (18:55)
[2022-02-14] MEDS: POTASSIUM CHLORIDE 10MEQ/100ML 100 ML IV PRN (18:56)
[2022-02-14] MEDS: DEXTROSE 5 %-0.45 % NACL 1,000 ML IV SCH (19:03)
[2022-02-14] MEDS ORDERED: KETOROLAC 15MG/ML VIAL (15MG/ML) IV PRN (20:00)
[2022-02-14 20:36] VITALS: BP 151/73
[2022-02-15 00:29] VITALS: BP 147/70
[2022-02-15] MEDS: MORPHINE 2 MG SYG IVP PRN ×2 (01:11→15:42)
[2022-02-15 04:22] VITALS: BP 126/58
[2022-02-15 05:02] LABS: BASOPHILS % (AUTO) 0.2 % (0.0-5.0); EOSINOPHILS % (AUTO) 1.1 % (0.0-8.0); HEMATOCRIT 29.8 % (36-48); LYMPHOCYTES % (AUTO) 17.4 % (21.0-51.0); MEAN CORPUSCULAR HEMOGLOBIN 31.4 pg (27.0-33.0); MEAN CORPUSCULAR HGB CONC 36.2 g/dL (32.0-36.0); MEAN CORPUSCULAR VOLUME 86.6 fL (79-99); MONOCYTES % (AUTO) 9.7 % (3.0-13.0); NEUTROPHILS % (AUTO) 71.3 % (40.0-77.0); PLATELET COUNT (AUTO) 241 K/uL (130-400); RED BLOOD CELL COUNT(AUTO) 3.44 MIL/uL (4.00-5.50); RED CELL DISTRIBUTION WIDTH 13.2 % (11.0-15.5); WHITE BLOOD COUNT (AUTO) 6.2 K/uL (4.8-10.8)
[2022-02-15 05:14] LABS: ALBUMIN 2.6 g/dL (3.5-5.0); BILIRUBIN,TOTAL 0.7 mg/dL (0.2-1.0); CREATININE 0.6 mg/dL (0.5-1.5); POTASSIUM 3.3 mmol/L (3.5-5.1); TOTAL PROTEIN, SERUM 5.7 g/dL (6.0-8.3)
[2022-02-15] MEDS: INSULIN HUMULIN R 100 UNIT/ML 3ML SQ SCH ×4 (06:13→20:27)
[2022-02-15] MEDS: METOCLOPRAMIDE 10 MG/2 ML VIAL IVP SCH ×3 (06:18→16:37)
[2022-02-15 07:51] VITALS: BP 139/72
[2022-02-15] MEDS: POLYETHYLENE GLYCOL 3350 17 GM POWD.PACK PO SCH (08:59)
[2022-02-15] MEDS: ENOXAPARIN SODIUM 30 MG/0.3 ML SQ SCH (09:08)
[2022-02-15] MEDS: CEFTRIAXONE 1G VIAL IVP SCH (09:08)
[2022-02-15] MEDS: PANTOPRAZOLE 40 MG/VIAL IVP SCH (09:08)
[2022-02-15] MEDS: POTASSIUM CHLORIDE 10MEQ/100ML 100 ML IV PRN ×2 (09:44→18:56)
[2022-02-15 12:00] VITALS: BP 147/76
[2022-02-15] MEDS ORDERED: DIATR MEGLU/DIATRIZOATE SODIUM 30 ML BOTTLE ONE (12:42)
[2022-02-15] MEDS: DEXTROSE 5 %-0.45 % NACL 1,000 ML IV SCH ×2 (14:30→18:55)
[2022-02-15] MEDS: ONDANSETRON 4MG INJ IVP PRN (15:50)
[2022-02-15 16:00] VITALS: BP 161/82
[2022-02-15] MEDS ORDERED: IOHEXOL-350 75 ML VIAL IV ONE (17:18)
[2022-02-15] MEDS: LIDOCAINE HCL-MPF 1% 2ML VIAL IV PRN (18:55)
[2022-02-15 20:43] VITALS: BP 154/85
[2022-02-16] VITALS (26 sets, daily range): BP systolic 130–185; BP diastolic 65–118
[2022-02-16 05:05] LABS: BASOPHILS % (AUTO) 0.3 % (0.0-5.0); EOSINOPHILS % (AUTO) 1.6 % (0.0-8.0); HEMATOCRIT 32.5 % (36-48); LYMPHOCYTES % (AUTO) 14.2 % (21.0-51.0); MEAN CORPUSCULAR HEMOGLOBIN 30.5 pg (27.0-33.0); MEAN CORPUSCULAR HGB CONC 35.1 g/dL (32.0-36.0); MEAN CORPUSCULAR VOLUME 86.9 fL (79-99); MONOCYTES % (AUTO) 8.6 % (3.0-13.0); NEUTROPHILS % (AUTO) 74.8 % (40.0-77.0); PLATELET COUNT (AUTO) 277 K/uL (130-400); RED BLOOD CELL COUNT(AUTO) 3.74 MIL/uL (4.00-5.50); WHITE BLOOD COUNT (AUTO) 7.7 K/uL (4.8-10.8)
[2022-02-16 05:22] LABS: ALBUMIN 2.8 g/dL (3.5-5.0); BILIRUBIN,TOTAL 0.6 mg/dL (0.2-1.0); CREATININE 0.5 mg/dL (0.5-1.5); POTASSIUM 3.6 mmol/L (3.5-5.1)
[2022-02-16] MEDS: INSULIN HUMULIN R 100 UNIT/ML 3ML SQ SCH ×4 (06:24→20:17)
[2022-02-16] MEDS: MORPHINE 2 MG SYG IVP PRN ×3 (06:31→21:59)
[2022-02-16] MEDS: ONDANSETRON 4MG INJ IVP PRN ×3 (06:31→20:17)
[2022-02-16] MEDS: 0.9%NACL 1000ML 1,000 ML IV SCH ×3 (08:58→22:20)
[2022-02-16] MEDS: CEFTRIAXONE 1G VIAL IVP SCH (08:59)
[2022-02-16] MEDS: PANTOPRAZOLE 40 MG/VIAL IVP SCH (08:59)
[2022-02-16] MEDS: POLYETHYLENE GLYCOL 3350 17 GM POWD.PACK PO SCH (08:59)
[2022-02-16] MEDS: ENOXAPARIN SODIUM 30 MG/0.3 ML SQ SCH (09:00)
[2022-02-16] MEDS: METOCLOPRAMIDE 10 MG/2 ML VIAL IVP SCH ×3 (09:05→17:00)
[2022-02-16] MEDS: POTASSIUM CHLORIDE 10MEQ/100ML 100 ML IV PRN (09:10)
[2022-02-16] MEDS: LIDOCAINE HCL-MPF 1% 2ML VIAL IV PRN (09:10)
[2022-02-16 13:01] LABS: INR 0.98 (0.85-1.15); PROTHROMBIN TIME 10.7 SEC (9.6-11.6)
[2022-02-16 13:02] LABS: PARTIAL THROMBOPLASTIN TIME 27.9 SEC (26.3-35.5)
[2022-02-16] MEDS ORDERED: LIDOCAINE PF 100MG/5ML (2%) SYRINGE 5ML ONE (16:51)
[2022-02-16] MEDS ORDERED: SUCCINYLCHOLINE 200MG/10ML SYR ONE (16:51)
[2022-02-16] MEDS ORDERED: PROPOFOL 10 MG/ML 20ML VIAL IV ONE (16:51)
[2022-02-16] MEDS ORDERED: MIDAZOLAM HCL 1 MG/ML 2ML VIAL ONE (16:51)
[2022-02-16] MEDS ORDERED: FENTANYL CITRATE PF 50 MCG/1 ML 2ML VIAL ONE (16:52)
[2022-02-16] MEDS ORDERED: ROCURONIUM 10MG/1ML SYR 10 MG/ML ML ONE (16:52)
[2022-02-16] MEDS ORDERED: NEOSTIGMINE 5MG/5ML SYR IV ONE (18:03)
[2022-02-16] MEDS ORDERED: GLYCOPYRROLATE 1 MG/5 ML SYRINGE ONE (18:03)
[2022-02-16] MEDS ORDERED: MEPERIDINE-PF 25 MG/ML SYG ONE (18:32)
[2022-02-17 00:10] VITALS: BP 134/78
[2022-02-17] MEDS: MORPHINE 2 MG SYG IVP PRN ×3 (01:20→22:08)
[2022-02-17 04:28] VITALS: BP 118/70
[2022-02-17 04:55] LABS: BASOPHILS % (AUTO) 0.2 % (0.0-5.0); LYMPHOCYTES % (AUTO) 4.5 % (21.0-51.0); MEAN CORPUSCULAR HEMOGLOBIN 30.5 pg (27.0-33.0); MEAN CORPUSCULAR HGB CONC 34.4 g/dL (32.0-36.0); MEAN CORPUSCULAR VOLUME 88.8 fL (79-99); MONOCYTES % (AUTO) 4.7 % (3.0-13.0); NEUTROPHILS % (AUTO) 90.2 % (40.0-77.0); PLATELET COUNT (AUTO) 319 K/uL (130-400); RED BLOOD CELL COUNT(AUTO) 3.83 MIL/uL (4.00-5.50); RED CELL DISTRIBUTION WIDTH 13.2 % (11.0-15.5); WHITE BLOOD COUNT (AUTO) 9.5 K/uL (4.8-10.8)
[2022-02-17 05:15] LABS: ALBUMIN 2.3 g/dL (3.5-5.0); BILIRUBIN,TOTAL 0.6 mg/dL (0.2-1.0); CREATININE 0.7 mg/dL (0.5-1.5); POTASSIUM 3.7 mmol/L (3.5-5.1)
[2022-02-17] MEDS: METOCLOPRAMIDE 10 MG/2 ML VIAL IVP SCH ×3 (05:51→18:20)
[2022-02-17] MEDS: INSULIN HUMULIN R 100 UNIT/ML 3ML SQ SCH ×4 (05:51→20:04)
[2022-02-17] MEDS ORDERED: LACTATED RINGERS 1000ML 1,000 ML IV ONE (05:55)
[2022-02-17] MEDS: LACTATED RINGERS 1000ML 1,000 ML IV SCH ×3 (06:00→22:08)
[2022-02-17 07:30] VITALS: BP 104/56
[2022-02-17] MEDS: POLYETHYLENE GLYCOL 3350 17 GM POWD.PACK PO SCH (08:14)
[2022-02-17] MEDS: CEFTRIAXONE 1G VIAL IVP SCH (09:37)
[2022-02-17] MEDS: ENOXAPARIN SODIUM 30 MG/0.3 ML SQ SCH (09:38)
[2022-02-17] MEDS: PANTOPRAZOLE 40 MG/VIAL IVP SCH (10:31)
[2022-02-17 11:30] VITALS: BP 126/59
[2022-02-17] MEDS: ONDANSETRON 4MG INJ IVP PRN (13:46)
[2022-02-17 15:30] VITALS: BP 103/51
[2022-02-17 20:00] VITALS: BP 117/50
[2022-02-18] VITALS: BP 118/54
[2022-02-18] MEDS ORDERED: MORPHINE 2 MG SYG ONE (03:40)
[2022-02-18 04:00] VITALS: BP 147/66
[2022-02-18 04:38] LABS: BASOPHILS % (AUTO) 0.1 % (0.0-5.0); EOSINOPHILS % (AUTO) 1.4 % (0.0-8.0); HEMATOCRIT 26.6 % (36-48); LYMPHOCYTES % (AUTO) 8.2 % (21.0-51.0); MEAN CORPUSCULAR HEMOGLOBIN 31.3 pg (27.0-33.0); MEAN CORPUSCULAR HGB CONC 34.6 g/dL (32.0-36.0); MEAN CORPUSCULAR VOLUME 90.5 fL (79-99); MONOCYTES % (AUTO) 7.3 % (3.0-13.0); NEUTROPHILS % (AUTO) 82.2 % (40.0-77.0); PLATELET COUNT (AUTO) 270 K/uL (130-400); RED BLOOD CELL COUNT(AUTO) 2.94 MIL/uL (4.00-5.50); RED CELL DISTRIBUTION WIDTH 13.7 % (11.0-15.5); WHITE BLOOD COUNT (AUTO) 9.2 K/uL (4.8-10.8)
[2022-02-18 04:59] LABS: BILIRUBIN,TOTAL 0.6 mg/dL (0.2-1.0); CREATININE 0.7 mg/dL (0.5-1.5); POTASSIUM 3.4 mmol/L (3.5-5.1); TOTAL PROTEIN, SERUM 4.9 g/dL (6.0-8.3)
[2022-02-18] MEDS: LIDOCAINE HCL-MPF 1% 2ML VIAL IV PRN (06:06)
[2022-02-18] MEDS: POTASSIUM CHLORIDE 10MEQ/100ML 100 ML IV PRN (06:06)
[2022-02-18] MEDS: LACTATED RINGERS 1000ML 1,000 ML IV SCH (06:07)
[2022-02-18] MEDS: METOCLOPRAMIDE 10 MG/2 ML VIAL IVP SCH ×3 (06:08→17:40)
[2022-02-18] MEDS: INSULIN HUMULIN R 100 UNIT/ML 3ML SQ SCH ×4 (06:09→20:33)
[2022-02-18] MEDS ORDERED: MORPHINE 4 MG SYG IVP PRN (07:30)
[2022-02-18 07:59] VITALS: BP 122/58
[2022-02-18] MEDS: DEXTROSE 5 %-0.45 % NACL 1,000 ML IV SCH ×2 (08:31→20:38)
[2022-02-18] MEDS: ENOXAPARIN SODIUM 30 MG/0.3 ML SQ SCH (08:35)
[2022-02-18] MEDS: PANTOPRAZOLE 40 MG/VIAL IVP SCH (08:35)
[2022-02-18] MEDS: CEFTRIAXONE 1G VIAL IVP SCH (08:35)
[2022-02-18] MEDS: FLUCONAZOLE 200 MG/NS 100 ML 100 ML IV SCH (08:36)
[2022-02-18] MEDS: POLYETHYLENE GLYCOL 3350 17 GM POWD.PACK PO SCH ×2 (08:36→12:20)
[2022-02-18 12:00] VITALS: BP 126/57
[2022-02-18] MEDS ORDERED: LACTULOSE 20 GM/30 ML UDCUP PO PRN (13:00)
[2022-02-18 16:00] VITALS: BP 141/61
[2022-02-18 20:00] VITALS: BP 134/51
[2022-02-18] MEDS: LACTULOSE 20 GM/30 ML UDCUP PO SCH (20:38)
[2022-02-19] VITALS: BP 150/67
[2022-02-19 04:00] VITALS: BP 156/73
[2022-02-19 05:16] LABS: BASOPHILS % (AUTO) 0.2 % (0.0-5.0); EOSINOPHILS % (AUTO) 1.7 % (0.0-8.0); HEMATOCRIT 26.5 % (36-48); LYMPHOCYTES % (AUTO) 8.6 % (21.0-51.0); MEAN CORPUSCULAR HEMOGLOBIN 30.6 pg (27.0-33.0); MEAN CORPUSCULAR HGB CONC 34.3 g/dL (32.0-36.0); MEAN CORPUSCULAR VOLUME 89.2 fL (79-99); MONOCYTES % (AUTO) 6.7 % (3.0-13.0); NEUTROPHILS % (AUTO) 81.9 % (40.0-77.0); PLATELET COUNT (AUTO) 317 K/uL (130-400); RED BLOOD CELL COUNT(AUTO) 2.97 MIL/uL (4.00-5.50); RED CELL DISTRIBUTION WIDTH 13.4 % (11.0-15.5); WHITE BLOOD COUNT (AUTO) 10.9 K/uL (4.8-10.8)
[2022-02-19 05:43] LABS: ALBUMIN 2.1 g/dL (3.5-5.0); BILIRUBIN,TOTAL 0.6 mg/dL (0.2-1.0); CREATININE 0.6 mg/dL (0.5-1.5); TOTAL PROTEIN, SERUM 5.2 g/dL (6.0-8.3)
[2022-02-19 05:44] LABS: POTASSIUM 2.8 mmol/L (3.5-5.1)
[2022-02-19] MEDS: POTASSIUM CHLORIDE 10MEQ/100ML 100 ML IV PRN ×2 (06:49→11:17)
[2022-02-19] MEDS: METOCLOPRAMIDE 10 MG/2 ML VIAL IVP SCH ×3 (06:50→17:01)
[2022-02-19] MEDS: INSULIN HUMULIN R 100 UNIT/ML 3ML SQ SCH ×4 (06:58→20:36)
[2022-02-19 07:56] VITALS: BP 155/68
[2022-02-19] MEDS: LACTULOSE 20 GM/30 ML UDCUP PO SCH ×2 (08:43→20:36)
[2022-02-19] MEDS: POLYETHYLENE GLYCOL 3350 17 GM POWD.PACK PO SCH (08:44)
[2022-02-19] MEDS: ENOXAPARIN SODIUM 30 MG/0.3 ML SQ SCH (08:45)
[2022-02-19] MEDS: CEFTRIAXONE 1G VIAL IVP SCH (08:45)
[2022-02-19] MEDS: PANTOPRAZOLE 40 MG/VIAL IVP SCH (08:45)
[2022-02-19] MEDS: FLUCONAZOLE 200 MG/NS 100 ML 100 ML IV SCH (08:45)
[2022-02-19] MEDS: LIDOCAINE HCL-MPF 1% 2ML VIAL IV PRN (11:16)
[2022-02-19] MEDS: DEXTROSE 5 %-0.45 % NACL 1,000 ML IV SCH (11:17)
[2022-02-19 12:00] VITALS: BP 137/61
[2022-02-19 16:00] VITALS: BP 158/68
[2022-02-19 20:00] VITALS: BP 142/76
[2022-02-20] VITALS: BP 152/74
[2022-02-20] MEDS: DEXTROSE 5 %-0.45 % NACL 1,000 ML IV SCH (03:36)
[2022-02-20 04:00] VITALS: BP 144/72
[2022-02-20 04:36] LABS: BASOPHILS % (AUTO) 0.2 % (0.0-5.0); EOSINOPHILS % (AUTO) 2.2 % (0.0-8.0); HEMATOCRIT 25.9 % (36-48); LYMPHOCYTES % (AUTO) 14.4 % (21.0-51.0); MEAN CORPUSCULAR HEMOGLOBIN 31.3 pg (27.0-33.0); MEAN CORPUSCULAR HGB CONC 35.5 g/dL (32.0-36.0); MEAN CORPUSCULAR VOLUME 88.1 fL (79-99); MONOCYTES % (AUTO) 7.4 % (3.0-13.0); PLATELET COUNT (AUTO) 310 K/uL (130-400); RED BLOOD CELL COUNT(AUTO) 2.94 MIL/uL (4.00-5.50); RED CELL DISTRIBUTION WIDTH 13.2 % (11.0-15.5); WHITE BLOOD COUNT (AUTO) 8.3 K/uL (4.8-10.8)
[2022-02-20 05:26] LABS: BILIRUBIN,TOTAL 0.4 mg/dL (0.2-1.0); CREATININE 0.5 mg/dL (0.5-1.5); MAGNESIUM 1.4 mg/dL (1.80-2.40); PHOSPHORUS 1.7 mg/dL (2.5-4.9)
[2022-02-20 05:28] LABS: POTASSIUM 2.9 mmol/L (3.5-5.1)
[2022-02-20] MEDS: LIDOCAINE HCL-MPF 1% 2ML VIAL IV PRN (05:50)
[2022-02-20] MEDS: POTASSIUM CHLORIDE 10MEQ/100ML 100 ML IV PRN ×2 (05:50→11:56)
[2022-02-20] MEDS: METOCLOPRAMIDE 10 MG/2 ML VIAL IVP SCH ×2 (05:51→11:55)
[2022-02-20] MEDS: INSULIN HUMULIN R 100 UNIT/ML 3ML SQ SCH ×2 (05:59→11:30)
[2022-02-20 08:00] VITALS: BP 147/67
[2022-02-20] MEDS ORDERED: KCL 20 MEQ ERTAB PO SCH (08:19)
[2022-02-20] MEDS: FLUCONAZOLE 200 MG/NS 100 ML 100 ML IV SCH (08:56)
[2022-02-20] MEDS: CEFTRIAXONE 1G VIAL IVP SCH (08:56)
[2022-02-20] MEDS: ENOXAPARIN SODIUM 30 MG/0.3 ML SQ SCH (08:57)
[2022-02-20] MEDS: PANTOPRAZOLE 40 MG/VIAL IVP SCH (08:57)
[2022-02-20 09:31] LABS: CREATININE 0.6 mg/dL (0.5-1.5); POTASSIUM 3.3 mmol/L (3.5-5.1)
[2022-02-20 12:00] VITALS: BP 128/74
[2022-02-20 16:00] VITALS: BP 166/75
== END 2022-02-20 17:26 | disposition home or self-care (01) | DRG 329 ==
LOC: EDH 20:55 → OBSVTOIN 22:40 → INTOOBSV 22:40 → EDHIP 22:40 → UNDOADMOB 22:40 → 3BH 02-13 05:12 → EDHIP 02-13 05:12
PROVIDERS: ADMIT Internal Medicine Critical Care Medicine; ATTEND Internal Medicine Critical Care Medicine
PROC: 0D9670Z Drainage of Stomach with Drainage Device, Via Natural or Artificial Opening (ICD-10-PCS; 2022-02-13)
PROC: 0DB80ZZ Excision of Small Intestine, Open Approach (ICD-10-PCS; principal; 2022-02-16 16:45)
DX: K56.51 Intestinal adhesions [bands], with partial obstruction (principal); E43 Unspecified severe protein-calorie malnutrition; E87.1 Hypo-osmolality and hyponatremia; N39.0 Urinary tract infection, site not specified; Z20.822 Contact with and (suspected) exposure to COVID-19; E03.9 Hypothyroidism, unspecified; I10 Essential (primary) hypertension; E78.00 Pure hypercholesterolemia, unspecified; K21.9 Gastro-esophageal reflux disease without esophagitis; J45.909 Unspecified asthma, uncomplicated; D64.9 Anemia, unspecified; E87.6 Hypokalemia; K59.09 Other constipation; E78.5 Hyperlipidemia, unspecified; I25.10 Atherosclerotic heart disease of native coronary artery without angina pectoris; Z90.49 Acquired absence of other specified parts of digestive tract; Z85.038 Personal history of other malignant neoplasm of large intestine; Z95.3 Presence of xenogenic heart valve; Z86.73 Personal history of transient ischemic attack (TIA), and cerebral infarction without residual deficits; Z79.899 Other long term (current) drug therapy; Z68.20 Body mass index [BMI] 20.0-20.9, adult
CPT/HCPCS: 36415; 71045; 74018; 74176; 74177; 80048; 80053; 81001; 82150; 82948; 83690; 83735; 84100; 84443; 84484; 85025; 85027; 85610; 85730; 87070; 87076; 87205; 87635; 93005; 97039; A4344; C9113; G0378; J0330; J0696; J1450; J1650; J1885; J2001; J2175; J2250; J2405; J2704; J2710; J2765; J3010; J3490; J7030; J7042; J7120; Q9963; Q9967

== ENCOUNTER 2022-02-27 20:43 | Observation (INO) | payer MEDICARE ==
[~2022-02-27] VITALS: Ht 154.9 cm; Wt 50.3 kg
[~2022-02-27 20:43] MED LIST changes: -AZEL137S11 NS; -LACT10SO9 PO; -ONDA4TAB10 PO; -PSYL3.4P5 PO; -SUCR1TAB28 PO
[2022-02-27 22:13] LABS: BASOPHILS % (AUTO) 0.4 % (0.0-5.0); EOSINOPHILS % (AUTO) 0.4 % (0.0-8.0); HEMATOCRIT 30.3 % (36-48); LYMPHOCYTES % (AUTO) 13.5 % (21.0-51.0); MEAN CORPUSCULAR HGB CONC 34.3 g/dL (32.0-36.0); MEAN CORPUSCULAR VOLUME 90.4 fL (79-99); MONOCYTES % (AUTO) 6.2 % (3.0-13.0); PLATELET COUNT (AUTO) 408 K/uL (130-400); RED BLOOD CELL COUNT(AUTO) 3.35 MIL/uL (4.00-5.50); RED CELL DISTRIBUTION WIDTH 13.3 % (11.0-15.5); WHITE BLOOD COUNT (AUTO) 10.3 K/uL (4.8-10.8)
[2022-02-27 22:16] LABS: CREATININE 0.7 mg/dL (0.5-1.5); POTASSIUM 3.7 mmol/L (3.5-5.1)
[2022-02-27 22:22] LABS: APPEARANCE,URINE Clear (CLEAR); BILIRUBIN,URINE Negative (NEGATIVE); COLOR,URINE Yellow (YELLOW); GLUCOSE, URINE (UA) Negative (NEGATIVE); KETONES,URINE Negative (NEGATIVE); LEUKOCYTE ESTERASE ,URINE Negative (NEGATIVE); NITRATE,URINE Negative (NEGATIVE); OCCULT BLOOD,URINE Negative (NEGATIVE); PROTEIN,URINE Negative (NEGATIVE)
[2022-02-27 22:23] LABS: ALBUMIN 3.7 g/dL (3.5-5.0); BILIRUBIN,TOTAL 0.5 mg/dL (0.2-1.0); TOTAL PROTEIN, SERUM 8.7 g/dL (6.0-8.3)
[2022-02-27 22:40] LABS: B-TYPE NATRIURETIC PEPTIDE 11 pg/mL (0-100)
[2022-02-27] MEDS ORDERED: ZOSYN 3.375GM +NS 50ML IV ONE (23:00)
[2022-02-27] MEDS ORDERED: VANCOMYCIN 1G VIAL IVPB ONE (23:00)
[2022-02-27] MEDS ORDERED: VANCOMYCIN 1G/250ML KIT 250 ML IV ONE (23:18)
[2022-02-27] MEDS ORDERED: IOHEXOL 350 MG/ML 100ML INFUS..BTL IV ONE (23:51)
[2022-02-28] MEDS ORDERED: 0.9%NACL 1000ML 1,000 ML IV ONE
[2022-02-28] MEDS ORDERED: ZOSYN 3.375GM+NS 50ML 50 ML ONE (00:41)
[2022-02-28] MEDS ORDERED: VANCOMYCIN PROTOCOL PER PHARMACY IV SCH (03:00)
[2022-02-28] MEDS ORDERED: GLUCAGON 1MG KIT 1 MG ML IM PRN (03:00)
[2022-02-28] MEDS ORDERED: ONDANSETRON 4MG INJ IVP PRN (03:00)
[2022-02-28] MEDS: ZOSYN 3.375GM +NS 50ML IV SCH ×3 (03:00→18:08)
[2022-02-28] MEDS ORDERED: 0.9%NACL 1000ML 1,000 ML IV SCH (03:00)
[2022-02-28] MEDS ORDERED: 0.9% NACL 250ML IV SCH (03:00)
[2022-02-28] MEDS ORDERED: ACETAMINOPHEN 325 MG TAB PO PRN (03:00)
[2022-02-28] MEDS ORDERED: DEXTROSE 50%-WATER 50 ML DISP.SYRIN IV PRN (03:00)
[2022-02-28 05:00] VITALS: BP 121/58
[2022-02-28] MEDS: INSULIN HUMULIN R 100 UNIT/ML 3ML SQ SCH ×4 (06:03→20:08)
[2022-02-28 07:59] VITALS: BP 114/52
[2022-02-28] MEDS ORDERED: VANCOMYCIN 1G/250ML KIT 250 ML IV SCH (09:00)
[2022-02-28 09:50] LABS: INR 0.99 (0.85-1.15); PROTHROMBIN TIME 10.8 SEC (9.6-11.6)
[2022-02-28 09:51] LABS: PARTIAL THROMBOPLASTIN TIME 29.4 SEC (26.3-35.5)
[2022-02-28] MEDS ORDERED: MAGNESIUM CITRATE 296 ML SOLUTION PO SCH (11:00)
[2022-02-28] MEDS ORDERED: LACTULOSE 20 GM/30 ML UDCUP PO PRN (11:30)
[2022-02-28 11:53] VITALS: BP 125/56
[2022-02-28] MEDS: LACTULOSE 20 GM/30 ML UDCUP PO SCH (12:01)
[2022-02-28 16:00] VITALS: BP 124/55
[2022-02-28 18:58] VITALS: BP 119/60
[2022-02-28] MEDS ORDERED: LABETALOL 20MG SYG IV PRN (19:30)
[2022-02-28] MEDS ORDERED: HYDRALAZINE 20MG/ML VIAL IV PRN (19:30)
[2022-02-28 23:55] VITALS: BP 105/52
[2022-03-01] MEDS: ZOSYN 3.375GM +NS 50ML IV SCH ×2 (02:27→11:00)
[2022-03-01 04:22] VITALS: BP 98/49
[2022-03-01 05:03] LABS: BASOPHILS % (AUTO) 0.4 % (0.0-5.0); EOSINOPHILS % (AUTO) 1.1 % (0.0-8.0); HEMATOCRIT 26.2 % (36-48); MEAN CORPUSCULAR HEMOGLOBIN 31.2 pg (27.0-33.0); MEAN CORPUSCULAR VOLUME 91.9 fL (79-99); MONOCYTES % (AUTO) 8.5 % (3.0-13.0); NEUTROPHILS % (AUTO) 71.5 % (40.0-77.0); PLATELET COUNT (AUTO) 395 K/uL (130-400); RED BLOOD CELL COUNT(AUTO) 2.85 MIL/uL (4.00-5.50); RED CELL DISTRIBUTION WIDTH 13.2 % (11.0-15.5); WHITE BLOOD COUNT (AUTO) 8.5 K/uL (4.8-10.8)
[2022-03-01 05:33] LABS: CREATININE 0.7 mg/dL (0.5-1.5); MAGNESIUM 2.1 mg/dL (1.80-2.40); POTASSIUM 3.6 mmol/L (3.5-5.1); THYROID STIMULATING HORMONE 9.35 uIU/mL (0.36-3.74)
[2022-03-01] MEDS: INSULIN HUMULIN R 100 UNIT/ML 3ML SQ SCH ×2 (06:06→11:30)
[2022-03-01 07:10] VITALS: BP 96/49
[2022-03-01] MEDS ORDERED: PANTOPRAZOLE 40 MG TAB DR PO SCH (09:00)
[2022-03-01] MEDS ORDERED: SULF1TAB42 PO (10:10)
[2022-03-01] MEDS: LACTULOSE 20 GM/30 ML UDCUP PO SCH (11:00)
== END 2022-03-01 12:25 | disposition home or self-care (01) ==
LOC: EDH 20:43 → INTOOBSV 02-28 02:30 → EDHIP 02-28 02:30 → 3AH 02-28 04:29
PROVIDERS: ADMIT Internal Medicine Pulmonary Disease; ATTEND Internal Medicine Pulmonary Disease
DX: T81.41XA Infection following a procedure, superficial incisional surgical site, initial encounter (principal); L02.211 Cutaneous abscess of abdominal wall; K56.609 Unspecified intestinal obstruction, unspecified as to partial versus complete obstruction; I10 Essential (primary) hypertension; K59.09 Other constipation; E78.00 Pure hypercholesterolemia, unspecified; K29.70 Gastritis, unspecified, without bleeding; E03.9 Hypothyroidism, unspecified; Z79.899 Other long term (current) drug therapy; Z79.890 Hormone replacement therapy; Z86.73 Personal history of transient ischemic attack (TIA), and cerebral infarction without residual deficits; Z90.49 Acquired absence of other specified parts of digestive tract
CPT/HCPCS: 36415 ×3; 74177; 80048; 80053; 81003; 82550; 82948 ×4; 83605; 83735; 83880; 84100; 84145; 84443; 85025 ×2; 85610; 85730; 87070; 87076; 87077 ×2; 87186 ×2; 96361; 96365; 96366; 96375; 96376 ×2; 97039; 97116 ×2; 97161; 99285; G0378 ×2; J2543 ×4; J3370 ×2; J7030 ×2; J7050; Q9967

== ENCOUNTER → 2022-03-25 | Outpatient (CLI) | payer MEDICARE ==
[~2022-03-25] MED LIST changes: +SULF1TAB42 PO
== END | disposition home or self-care (01) ==
LOC: RAH 10:03
PROVIDERS: ATTEND Internal Medicine Gastroenterology
DX: K59.04 Chronic idiopathic constipation (principal); K59.09 Other constipation
CPT/HCPCS: 74018

== ENCOUNTER → 2022-04-26 | Outpatient (CLI) | payer MEDICARE ==
[~2022-04-26] MED LIST changes: -LOSA100T58 PO
== END | disposition home or self-care (01) ==
LOC: RAH 10:15
PROVIDERS: ATTEND Family Medicine
DX: Z12.31 Encounter for screening mammogram for malignant neoplasm of breast (principal); R92.1 Mammographic calcification found on diagnostic imaging of breast
CPT/HCPCS: 77067

== ENCOUNTER → 2022-08-09 | Outpatient (CLI) | payer MEDICARE | END | disposition home or self-care (01) | LOC: SHCH 11:25 | PROVIDERS: ATTEND Internal Medicine Cardiovascular Disease | DX: I34.0 Nonrheumatic mitral (valve) insufficiency (principal); I11.9 Hypertensive heart disease without heart failure | CPT/HCPCS: 93306 ==

== ENCOUNTER → 2022-08-22 | Outpatient (CLI) | payer MEDICARE | END | disposition home or self-care (01) | LOC: RAH 09:04 | PROVIDERS: ATTEND Surgery | DX: K56.609 Unspecified intestinal obstruction, unspecified as to partial versus complete obstruction (principal); R10.9 Unspecified abdominal pain | CPT/HCPCS: 76700 ==

== ENCOUNTER → 2023-01-13 | Outpatient (CLI) | payer MEDICARE ==
[~2023-01-13] MED LIST changes: +IOHEXOL-350 50ML VIAL IV ONE
== END | disposition home or self-care (01) ==
LOC: RAH 08:03
PROVIDERS: ATTEND Urology
DX: N13.30 Unspecified hydronephrosis (principal); Z98.890 Other specified postprocedural states
CPT/HCPCS: 74178; Q9967

== ENCOUNTER → 2023-04-28 | Outpatient (CLI) | payer MEDICARE ==
[~2023-04-28] MED LIST changes: -IOHEXOL-350 50ML VIAL IV ONE
== END | disposition home or self-care (01) ==
LOC: RAH 09:19
PROVIDERS: ATTEND Family Medicine
DX: Z12.31 Encounter for screening mammogram for malignant neoplasm of breast (principal)
CPT/HCPCS: 77067

== ENCOUNTER 2024-01-02 17:00 | Inpatient (IN) | payer MEDICARE ==
[~2024-01-02] VITALS: Ht 154.9 cm; Wt 51.5 kg
[2024-01-02 11:20] LABS: BASOPHILS # (AUTO) 0.02 K/uL (0.00-0.20); BASOPHILS % (AUTO) 0.3 % (0.0-5.0); EOSINOPHILS # (AUTO) 0.04 K/uL (0.00-0.70); EOSINOPHILS % (AUTO) 0.6 % (0.0-8.0); HEMATOCRIT 37.8 % (36-48); IMMATURE GRANULOCYTE ABSOLUTE 0.03 K/uL (0-1); LYMPHOCYTES # (AUTO) 1.8 K/uL (1.0-4.8); LYMPHOCYTES % (AUTO) 25.7 % (21.0-51.0); MEAN CORPUSCULAR HEMOGLOBIN 31.6 pg (27.0-33.0); MEAN CORPUSCULAR HGB CONC 33.3 g/dL (32.0-36.0); MEAN CORPUSCULAR VOLUME 94.7 fL (79-99); MONOCYTES # (AUTO) 0.4 K/uL (0.1-1.0); NEUTROPHILS # (AUTO) 4.7 K/uL (1.8-7.7); PLATELET COUNT (AUTO) 220 K/uL (130-400); RED BLOOD CELL COUNT(AUTO) 3.99 MIL/uL (4.00-5.50); RED CELL DISTRIBUTION WIDTH 12.5 % (11.0-15.5)
[2024-01-02 11:22] VITALS: BP 143/62; PULSE 56; RESP 18
[2024-01-02 11:32] LABS: INR <= 0.93 (0.85-1.15); PROTHROMBIN TIME 10.1 SEC (9.6-11.6)
[2024-01-02 11:33] LABS: PARTIAL THROMBOPLASTIN TIME 26.5 SEC (26.3-35.5)
[2024-01-02 11:37] LABS: ALBUMIN 3.4 g/dL (3.5-5.0); BILIRUBIN,TOTAL 0.5 mg/dL (0.2-1.0); CREATININE 0.8 mg/dL (0.5-1.5); POTASSIUM 4.7 mmol/L (3.5-5.1); TOTAL PROTEIN, SERUM 6.9 g/dL (6.0-8.3)
[~2024-01-02 17:00] MED LIST changes: +CHOL2000 PO; +DOCU100T PO; +FISH1CAP27 PO; -HYDR12.54 PO; -LINA290C PO; +LOSA100T59 PO; +METO-408 PO; -METO5 PO; -MONT-39 PO; -SULF1TAB42 PO
[2024-01-07] VITALS (28 sets, daily range): BP systolic 121–183; BP diastolic 54–86; PULSE 66–99; RESP 9–16; O2SAT 98–99
[2024-01-07] MEDS: INVANZ 1GM+NS 50ML IVPB 50 ML IV ONE (07:00)
[2024-01-07] MEDS ORDERED: BUPIVACAINE/PF 0.5% 30ML VIAL ONE (07:22)
[2024-01-07] MEDS ORDERED: LIDOCAINE 1%-EPI 1:100,000 20 ML VIAL ONE (07:22)
[2024-01-07] MEDS ORDERED: PHENYLEPHRINE HCL 10 MG/ML 1ML VIAL IV ONE (07:28)
[2024-01-07] MEDS ORDERED: PROPOFOL 10 MG/ML 20ML VIAL IV ONE (07:38)
[2024-01-07] MEDS ORDERED: LIDOCAINE PF 100MG/5ML (2%) SYRINGE 5ML ONE (07:38)
[2024-01-07] MEDS ORDERED: SUCCINYLCHOLINE CHLORIDE 20 MG/ML 10 ML VIAL ONE (07:39)
[2024-01-07] MEDS ORDERED: ROCURONIUM BROMIDE 10MG/1ML 5ML VL ONE (07:39)
[2024-01-07] MEDS ORDERED: FENTANYL CITRATE PF 50 MCG/1 ML 5ML AMP IV ONE (07:39)
[2024-01-07] MEDS: LACTATED RINGERS 1000ML 1,000 ML IV ONE (07:39)
[2024-01-07] MEDS ORDERED: GLYCOPYRROLATE 0.2 MG/ML 5 ML VIAL ONE (07:39)
[2024-01-07] MEDS: HYDROMORPHONE 1 MG INJ ONE (08:12)
[2024-01-07] MEDS: FAMOTIDINE 20MG VIAL IV ONE (08:12)
[2024-01-07] MEDS: ERTAPENEM SODIUM 1 GM/VIAL IV ONE ×2 (08:45)
[2024-01-07] MEDS: BUPIVACAINE/PF 0.5% 30ML VIAL INJ ONE ×2 (09:30)
[2024-01-07] MEDS: VANCOMYCIN 1G/250ML KIT 250 ML IV ONE (09:30)
[2024-01-07] MEDS: LIDOCAINE 1%-EPI 1:100,000 20 ML VIAL IJ ONE ×2 (09:30)
[2024-01-07] MEDS: VANCOMYCIN 1G VIAL IRRIG ONE (09:35)
[2024-01-07] MEDS ORDERED: ONDANSETRON 4MG INJ ONE (09:41)
[2024-01-07] MEDS: INDOCYANINE GREEN 25 MG VIAL IJ ONE (10:39)
[2024-01-07] MEDS ORDERED: ACETAMINOPHEN 325 MG TAB PO PRN (12:30)
[2024-01-07] MEDS ORDERED: MORPHINE 2 MG SYG IV PRN (12:30)
[2024-01-07] MEDS ORDERED: HYDROCODONE/ACETAMINOPHEN 5/325 MG TAB PO PRN (12:30)
[2024-01-07] MEDS ORDERED: ONDANSETRON 4MG INJ IVP PRN (12:30)
[2024-01-07] MEDS: MEPERIDINE-PF 25 MG/ML SYG ONE (13:10)
[2024-01-07] MEDS: ONDANSETRON 4MG INJ ONE (13:10)
[2024-01-07] MEDS: DiphenhydrAMINE HCL 50 MG/ML VIAL ONE (13:11)
[2024-01-07] MEDS: ACETAMINOPHEN 1,000 MG/100 ML VIAL IV ONE (13:11)
[2024-01-07] MEDS: HYDRALAZINE 20MG/ML VIAL ONE (13:12)
[2024-01-07] MEDS: LABETALOL 20MG SYG IV ONE (13:12)
[2024-01-07] MEDS ORDERED: CABERGOLINE PO SCH (16:30)
[2024-01-07] MEDS: D5W-1/2 NS/20MEQ KCL 1,000 ML IV SCH (20:20)
[2024-01-07] MEDS: FAMOTIDINE 20MG VIAL IV SCH (20:20)
[2024-01-07] MEDS: METOPROLOL SUCCINATE 25 MG TAB.SR.24H PO SCH (20:21)
[2024-01-07] MEDS: LOSARTAN 50 MG TABLET PO SCH (20:21)
[2024-01-07] MEDS: HEPARIN 5,000 UNIT VIAL SQ SCH (20:26)
[2024-01-08] VITALS: BP 131/63; PULSE 78; RESP 18
[2024-01-08 04:00] VITALS: BP 147/68; PULSE 69; RESP 18
[2024-01-08 05:42] LABS: BASOPHILS # (AUTO) 0.01 K/uL (0.00-0.20); BASOPHILS % (AUTO) 0.2 % (0.0-5.0); EOSINOPHILS # (AUTO) 0.01 K/uL (0.00-0.70); EOSINOPHILS % (AUTO) 0.2 % (0.0-8.0); HEMATOCRIT 30.6 % (36-48); IMMATURE GRANULOCYTE ABSOLUTE 0.02 K/uL (0-1); LYMPHOCYTES # (AUTO) 1.7 K/uL (1.0-4.8); MEAN CORPUSCULAR HEMOGLOBIN 31.6 pg (27.0-33.0); MEAN CORPUSCULAR HGB CONC 35.3 g/dL (32.0-36.0); MEAN CORPUSCULAR VOLUME 89.5 fL (79-99); MONOCYTES # (AUTO) 0.6 K/uL (0.1-1.0); MONOCYTES % (AUTO) 9.5 % (3.0-13.0); NEUTROPHILS % (AUTO) 62.8 % (40.0-77.0); PLATELET COUNT (AUTO) 158 K/uL (130-400); RED BLOOD CELL COUNT(AUTO) 3.42 MIL/uL (4.00-5.50); WHITE BLOOD COUNT (AUTO) 6.4 K/uL (4.8-10.8)
[2024-01-08 05:54] LABS: CREATININE 0.7 mg/dL (0.5-1.5); POTASSIUM 4.1 mmol/L (3.5-5.1)
[2024-01-08] MEDS: LEVOTHYROXINE 50 MCG TABLET PO SCH (06:31)
[2024-01-08 08:00] VITALS: BP 146/70; PULSE 63; RESP 16
[2024-01-08 08:10] VITALS: O2SAT 99
[2024-01-08] MEDS: PANTOPRAZOLE 40 MG TAB DR PO SCH (08:23)
[2024-01-08] MEDS: 0.9%NACL 1000ML 1,000 ML IV ONE (08:23)
[2024-01-08] MEDS: AMLODIPINE 5 MG TAB PO SCH (08:23)
[2024-01-08 10:37] LABS: CREATININE 0.7 mg/dL (0.5-1.5)
[2024-01-08] MEDS ORDERED: NON-FORMULARY MEDICATION 1 EACH (Omeprazole 20 MG) PO SCH (12:00)
[2024-01-08 12:34] LABS: CREATININE,URINE RANDOM 4 mg/dL (30-135)
[2024-01-08] MEDS ORDERED: 0.9%NACL 1000ML 1,000 ML IV SCH (13:00)
[2024-01-08 13:11] LABS: SODIUM,URINE RANDOM 17 mmol/l (40-220)
[2024-01-08 16:00] VITALS: BP 124/59; PULSE 61; RESP 16
== END 2024-01-08 18:55 | disposition home or self-care (01) | DRG 330 ==
LOC: DAHIP 01-07 06:18 → 3CH 01-07 16:00
PROVIDERS: ADMIT Surgery; ATTEND Surgery
PROC: 0DNU4ZZ Release Omentum, Percutaneous Endoscopic Approach (ICD-10-PCS; 2024-01-07)
PROC: 0DSP4ZZ Reposition Rectum, Percutaneous Endoscopic Approach (ICD-10-PCS; 2024-01-07)
PROC: 0DUP4JZ Supplement Rectum with Synthetic Substitute, Percutaneous Endoscopic Approach (ICD-10-PCS; 2024-01-07)
PROC: 8E0W4CZ Robotic Assisted Procedure of Trunk Region, Percutaneous Endoscopic Approach (ICD-10-PCS; principal; 2024-01-07 08:15)
DX: K62.3 Rectal prolapse (principal); E87.1 Hypo-osmolality and hyponatremia; K59.00 Constipation, unspecified; K66.0 Peritoneal adhesions (postprocedural) (postinfection); K59.09 Other constipation; E11.9 Type 2 diabetes mellitus without complications; D64.9 Anemia, unspecified; E03.9 Hypothyroidism, unspecified; E78.00 Pure hypercholesterolemia, unspecified; I10 Essential (primary) hypertension; N19 Unspecified kidney failure
CPT/HCPCS: 36415; 80048; 80053; 82570; 83930; 83935; 84300; 85025; 85610; 85730; 86850; 86900; 86901; 93005; A4344; C1781; G0378; J0330; J0360; J1170; J1200; J1335; J1644; J2001; J2175; J2371; J2405; J2704; J3010; J3370; J3480; J3490; J7030; J7120; A4215; A4221; A4222; A4223; A4649; A4663; A4930; A6260; G0168; J0665

== ENCOUNTER → 2024-03-02 | Outpatient (CLI) | payer MEDICARE | END | disposition home or self-care (01) | LOC: RAH 08:52 | PROVIDERS: ATTEND Family Medicine | DX: Z13.820 Encounter for screening for osteoporosis (principal); M81.0 Age-related osteoporosis without current pathological fracture; M85.859 Other specified disorders of bone density and structure, unspecified thigh | CPT/HCPCS: 77080 ==

== ENCOUNTER → 2024-04-29 | Outpatient (CLI) | payer MEDICARE | END | disposition home or self-care (01) | LOC: RAH 08:50 | PROVIDERS: ATTEND Family Medicine | DX: Z12.31 Encounter for screening mammogram for malignant neoplasm of breast (principal); R92.333 Mammographic heterogeneous density, bilateral breasts | CPT/HCPCS: 77067 ==

== ENCOUNTER → 2025-05-02 | Outpatient (CLI) | payer MEDICARE, MEDICAID ==
[~2025-05-02] MED LIST changes: +CEPH500B PO; +FAMO20TA8 PO; +HYD25 PO; +METH4TAB3 PO
== END | disposition home or self-care (01) ==
LOC: RAH 10:29
PROVIDERS: ATTEND Family Medicine
DX: Z12.31 Encounter for screening mammogram for malignant neoplasm of breast (principal)
CPT/HCPCS: 77067

== ENCOUNTER → 2025-09-19 | Outpatient (CLI) | payer MEDICARE, MEDICAID ==
--- NOTE | 2025-09-20 02:53 | HMCIMG ---
STUDY: ULTRASOUND OF THE THYROID AND NECK CLINICAL INFORMATION: History of nontoxic single thyroid nodule. TECHNIQUE: High-resolution real-time ultrasound of the thyroid gland and adjacent cervical soft tissues was performed using a high-frequency linear transducer. COMPARISON: None provided. FINDINGS: THYROID GLAND: Overall thyroid echotexture appears within normal limits without diffuse enlargement. RIGHT LOBE: Right lobe measures approximately 2.9 x 0.6 x 1.1 cm. No discrete dominant nodule is identified in the right lobe. LEFT LOBE: Left lobe measures approximately 0.1 x 0.3 x 0.7 cm. ISTHMUS: Isthmus measures approximately 3 mm in anterior???posterior thickness. NODULES: A single solid hypoechoic nodule is seen in the left lobe, measuring approximately 7 x 3 x 5 mm. The nodule is wider than tall with smooth margins and no internal calcifications or echogenic foci. ACR TI-RADS features: solid (2 points), hypoechoic (2 points), [id number] (0 points), smooth margin (0 points), no echogenic foci (0 points); total 4 points, corresponding to TI-RADS TR4 (moderately suspicious), subcentimeter. IMPRESSION: * Solitary solid hypoechoic left thyroid nodule measuring 7 mm, TI-RADS TR4 (moderately suspicious) based on ACR criteria. * Otherwise unremarkable thyroid ultrasound. * The TR4 nodule is subcentimeter and below ACR TI-RADS size thresholds for fine-needle aspiration or routine sonographic follow-up. /Casm[place]
== END | disposition home or self-care (01) ==
LOC: RAH 13:30
PROVIDERS: ATTEND Family Medicine
DX: E04.1 Nontoxic single thyroid nodule (principal)
CPT/HCPCS: 76536